=== PATIENT | male | born 1985 | race Caucasian/White ===

== ENCOUNTER 2017-04-01 00:43 | Emergency (ER) | payer SELFPAY ==
[2017-04-01] MEDS ORDERED: Albuterol/Ipratropium 3.0-0.5 MG/3 ML Neb Soln NEB ONE (01:13)
--- NOTE | 2017-04-01 01:16 | EDM.PDOC ---
ED HPI GENERAL MEDICAL PROBLEM - General Chief Complaint: Respiratory Problem Stated Complaint: PERSISTENT COUGH Time Seen by Provider: 04/01/17 01:05 - History of Present Illness INITIAL COMMENTS - FREE TEXT/NARRATIVE: HISTORY AND PHYSICAL: History of present illness: The patient is a 31-year-old male with no stated pulmonary history who has had a dry hacking spastic cough for the last 3 days with fevers and chills as well as a sore throat. He has had some nasal drainage and postnasal drip and has been using [id number] Benadryl DayQuil and NyQuil. Patient has not had any abdominal pain or chest pain specifically but when he is coughing he feels that his lungs are sore. He's not had diarrhea and vomiting and he has been pushing fluids. He did not get his flu shot this year. Review of systems: As per history of present illness and below otherwise all systems reviewed and negative. Past medical history: As per history of present illness and as reviewed below otherwise noncontributory. Surgical history: As per history of present illness and as reviewed below otherwise noncontributory. Social history: No reported history of drug or alcohol abuse. Family history: As per history of present illness and as reviewed below otherwise noncontributory. Physical exam: Gen.: Well-developed well-nourished man who is nontoxic and speaking clearly with some nasal quality to voice HEENT: Atraumatic, normocephalic, pupils reactive, negative for conjunctival pallor or scleral icterus, mucous membranes moist, throat clear of exudates but there is some posterior erythema, there is no nuchal rigidity or cervical adenopathy, neck supple, nontender, trachea midline. Lungs: Clear to auscultation with diminished breath sounds at the bases and occasional coarse breath sound stridor or wheezing, breath sounds equal bilaterally, chest nontender. Heart: S1S2, regular rate and rhythm no overt murmurs Abdomen: Soft, nondistended, nontender. NABS. Pelvis: Deferred Genitourinary: Deferred. Rectal: Deferred. Extremities: Atraumatic, negative for cords or calf pain. Neurovascular unremarkable. Neuro: Awake, alert, oriented. Cranial nerves II through XII unremarkable. Cerebellum unremarkable. Motor and sensory unremarkable throughout. Exam nonfocal. Diagnostics: Rapid strep influenza chest x-ray Therapeutics: DuoNeb spacer, spacer teaching The patient states that he does feel better after the DuoNeb and I will give him a spacer and albuterol for home to use as this is likely a bronchitic cough he is experiencing. He is aware of all testing results including the left basilar atelectasis. In light of his symptomatology I will have him I course of antibiotics as this may be an early pneumonia. I will also give him follow-up as he needs to go to the clinic for reevaluation and further care. I will also give him some cough medication Impression: Acute bronchitis/early left lower lobe pneumonia versus atelectasis Definitive disposition and diagnosis as appropriate pending reevaluation and review of above. throat Pain Score (Numeric/FACES): 8 - Related Data Allergies Allergy/AdvReac Type Severity Reaction Status Date / Time No Known Allergies Allergy Verified 04/01/17 00:55 Home Meds: Home Meds . [No Known Home Meds] 04/01/17 [History] Past Medical History HEENT History: Reports: None Cardiovascular History: Reports: None Respiratory History: Reports: None Gastrointestinal History: Reports: None Genitourinary History: Reports: None Musculoskeletal History: Reports: None Neurological History: Reports: None Psychiatric History: Reports: None Endocrine/Metabolic History: Reports: None Dermatologic History: Reports: None - Infectious Disease History Infectious Disease History: Reports: None Social & Family History - Family History Family Medical History: Noncontributory - Tobacco Use Smoking Status *Q: Current Every Day Smoker Years of Tobacco use: 13 Packs/Tins Daily: 1 - Recreational Drug Use Recreational Drug Use: No ED ROS GENERAL - Review of Systems Review Of Systems: ROS reveals no pertinent complaints other than HPI. ED EXAM, GENERAL - Physical Exam Exam: See Below (See dictation) Course - Vital Signs Last Recorded V/S: Last Vital Signs Temp 37.9 C 04/01/17 01:03 Pulse 99 04/01/17 01:03 Resp 16 04/01/17 01:03 BP 129/75 04/01/17 01:03 Pulse Ox 95 04/01/17 01:03 - Orders/Labs/Meds Orders: Active Orders 24 hr Category Date Time Status Communication Order [RC] STAT Care 04/01/17 02:23 Ordered RT Aerosol Therapy [RC] ASDIRECTED Care 04/01/17 01:13 Active Chest 2V [CR] Stat Exams 04/01/17 01:13 Taken CULTURE STREP A CONFIRMATION [RM] Stat Lab 04/01/17 01:20 Results STREP SCRN A RAPID W CULT CONF [RM] Stat Lab 04/01/17 01:20 Results Meds: Medications Discontinued Medications Generic Name Dose Route Start Last Admin Trade Name Marisabel PRN Reason Stop Dose Admin Albuterol/Ipratropium 3 ml 04/01/17 01:13 04/01/17 01:28 Duoneb 3.0-0.5 Mg/3 Ml NEB 04/01/17 01:14 3 ml ONETIME ONE Administration Departure - Departure Time of Disposition: 02:24 Disposition: Home, Self-Care 01 Condition: Good Clinical Impression: Acute bronchitis, Atelectasis of left lung - Discharge Information Referrals: PCP,None [Primary Care Provider] - Forms: ED Department Discharge Additional Instructions: The following information is given to patients seen in the emergency department who are being discharged to home. This information is to outline your options for follow-up care. We provide all patients seen in our emergency department with a follow-up referral. The need for follow-up, as well as the timing and circumstances, are variable depending upon the specifics of your emergency department visit. If you don't have a primary care physician on staff, we will provide you with a referral. We always advise you to contact your personal physician following an emergency department visit to inform them of the circumstance of the visit and for follow-up with them and/or the need for any referrals to a consulting specialist. The emergency department will also refer you to a specialist when appropriate. This referral assures that you have the opportunity for followup care with a specialist. All of these measure are taken in an effort to provide you with optimal care, which includes your followup. Under all circumstances we always encourage you to contact your private physician who remains a resource for coordinating your care. When calling for followup care, please make the office aware that this follow-up is from your recent emergency room visit. If for any reason you are refused follow-up, please contact the [facility] emergency department at and ask to speak to the emergency department charge nurse. [facility] Primary care- Internal Medicine and Family [address] [address] Please use medications as prescribed to you via [employer]. Push hydration and please contact our clinic for reevaluation and further care the next few days. Return to ER as needed and as discussed. Use [id number] Tylenol and Motrin /ibuprofen for fever and bodyaches. You have been given Phenergan with codeine, and albuterol inhaler, and Zithromax via [employer] [facility]. - My Orders Last 24 Hours: My Active Orders 04/01/17 01:13 RT Aerosol Therapy [RC] ASDIRECTED Chest 2V [CR] Stat 04/01/17 01:20 CULTURE STREP A CONFIRMATION [RM] Stat STREP SCRN A RAPID W CULT CONF [] Stat 04/01/17 02:23 Communication Order [RC] STAT - Assessment/Plan Last 24 Hours: My Active Orders 04/01/17 01:13 RT Aerosol Therapy [RC] ASDIRECTED Chest 2V [CR] Stat 04/01/17 01:20 CULTURE STREP A CONFIRMATION [RM] Stat STREP SCRN A RAPID W CULT CONF [RM] Stat 04/01/17 02:23 Communication Order [RC] STAT
--- NOTE | 2017-04-01 09:47 | CR ---
EXAM DATE: 04/01/17 PATIENT'S AGE: 31 Patient: SAMIR DUNHAM Facility: [place], [place] Site . Site : 1985 Study: XRay Chest [id number]/9/2018 1:50:52 AM Ordering Physician: Hakan Rosales Final Report: INDICATION: Cough, Fever TECHNIQUE: Chest radiograph 2 views COMPARISON: None FINDINGS: Mediastinum: The heart silhouette is normal in size and morphology. The mediastinum is normal in appearance. Lungs: Trace left basilar atelectasis noted. No sign of pleural effusion seen. No pneumothorax is identified. Bones and soft tissue: Unremarkable for age. IMPRESSION: 1. Trace left basilar atelectasis noted. Dictated by: Jefry Young MD @ 04/01/2017 01:52:31 (Electronic Signature) Report Signed by Proxy. CECE
== END 2017-04-01 02:38 | disposition home or self-care (01) ==
LOC: MW.ED 00:43
DX: J20.9 Acute bronchitis, unspecified (principal); J98.11 Atelectasis; F17.210 Nicotine dependence, cigarettes, uncomplicated
CPT/HCPCS: 71046; 71046-26; 87081; 87804; 87880; 94640; 99284; 99284-25